=== PATIENT | female | born 1975 | race Caucasian/White ===

== ENCOUNTER 2023-12-12 14:10 | Emergency (ER) | payer SELFPAY | END 2023-12-12 14:33 | disposition left against medical advice (07) | LOC: MED 14:10 | DX: R10.9 Unspecified abdominal pain (principal); Z53.21 Procedure and treatment not carried out due to patient leaving prior to being seen by health care provider ==

== ENCOUNTER 2024-01-22 12:43 | Emergency (ER) | payer SELFPAY ==
[~2024-01-22] VITALS: Ht 154.9 cm; Wt 93.0 kg
[2024-01-22 12:49] VITALS: BP 169/98; PULSE 89; RESP 18; TEMP 98.9; O2SAT 98
[2024-01-22] MEDS ORDERED: AMOX875T3 PO (13:26)
[2024-01-22] MEDS ORDERED: BENZ-300 PO (13:26)
[2024-01-22] MEDS ORDERED: POLY15SO74 LEFT EYE (13:26)
[2024-01-22 13:33] VITALS: BP 145/62; PULSE 88; RESP 18; TEMP 98.9; O2SAT 99
== END 2024-01-22 13:33 | disposition home or self-care (01) ==
LOC: MED 12:43
DX: H66.92 Otitis media, unspecified, left ear (principal); H10.89 Other conjunctivitis; B97.89 Other viral agents as the cause of diseases classified elsewhere; Z88.8 Allergy status to other drugs, medicaments and biological substances; Z79.899 Other long term (current) drug therapy
CPT/HCPCS: 99283

== ENCOUNTER 2024-01-26 19:04 | Emergency (ER) | payer MEDICAID ==
[~2024-01-26] VITALS: Ht 154.9 cm; Wt 95.3 kg
[~2024-01-26 19:04] MED LIST: AMOX875T3 PO; BENZ-300 PO; POLY15SO74 LEFT EYE
[2024-01-26 19:17] VITALS: BP 188/104; PULSE 82; RESP 20; TEMP 97.3; O2SAT 98
[2024-01-26] MEDS ORDERED: SULF-59 PO (19:43)
[2024-01-26] MEDS ORDERED: AMOX875T3 PO (19:43)
[2024-01-26] MEDS ORDERED: IBUP-1842 PO (19:43)
== END 2024-01-26 19:50 | disposition home or self-care (01) ==
LOC: MED 19:04
DX: H00.036 Abscess of eyelid left eye, unspecified eyelid (principal); R03.0 Elevated blood-pressure reading, without diagnosis of hypertension; Z79.899 Other long term (current) drug therapy
CPT/HCPCS: 99283